=== PATIENT | female | born 1990 | race Hispanic/Latino ===

== ENCOUNTER 2023-05-18 04:39 | Emergency (ER) | payer SELFPAY ==
[2023-05-18] MEDS ORDERED: HYDROcodone/Acetaminophen 5/325 mg Tablet ONE (05:35)
== END 2023-05-18 05:41 | disposition home or self-care (01) ==
LOC: ERS 04:39
DX: K08.89 Other specified disorders of teeth and supporting structures (principal)
CPT/HCPCS: 99282